=== PATIENT | male | born 1950 | race Caucasian/White ===

== ENCOUNTER → 2025-01-01 09:35 | Outpatient (REF) | payer MEDICARE, OTHER, SELFPAY ==
[2025-01-01 10:23] LABS: Hematocrit 43.9 % (39.0-52.0); Hemoglobin 15.3 g/dL (13.0-18.0); Mean Corp Hgb Conc. 34.9 g/dL (33.0-37.0); Mean Corpuscular Volume 89.6 fL (80.0-94.0); Nucleated Red Blood Cells % 0 % (-); Platelet Count 181 10^3/uL (130-400); Red Cell Dist. Width 12.1 % (11.5-14.5)
[2025-01-01 10:33] LABS: ALT (SGPT) 26 U/L (0-50); AST (SGOT) 21 U/L (17-59); Albumin 4.4 g/dl (3.5-5.0); Alkaline Phosphatase 159 U/L (38-126); Blood Urea Nitrogen 12 mg/dl (9-20); Calcium 9.9 mg/dl (8.4-10.2); Carbon Dioxide 26 mmol/L (22-30); Chloride 107 mmol/L (98-107); Glucose 100 mg/dl (70-99); Potassium 4.3 mmol/L (3.5-5.1); Sodium 137 mmol/L (135-145); Total Protein 7.3 g/dl (6.3-8.2); eGFR > 60.00
[2025-01-01 10:36] LABS: INR 1.19; PT 15.4 Sec (11.4-14.6)
[2025-01-01 11:16] LABS: Magnesium 2.0 mg/dl (1.6-2.3)
== END ==
LOC: SDSPAT 09:35
PROVIDERS: ATTENDING PHYSICIAN Internal Medicine Cardiovascular Disease; FAMILY PHYSICIAN Family Medicine Sports Medicine; OTHER PHYSICIAN Internal Medicine Cardiovascular Disease
DX: I48.0 Paroxysmal atrial fibrillation (principal)
CPT/HCPCS: 36415; 75572; 80053; 83735; 85025; 85610; 86850; 86900; 86901; 93005; Q9967

== ENCOUNTER 2025-01-27 05:54 | Day surgery (SDC) | payer MEDICARE, OTHER, SELFPAY ==
[2025-01-01 13:42] VITALS: BMI 34.2
[2025-01-27] VITALS (13 sets, daily range): BP systolic 118–151; BP diastolic 69–82; BMI 34.1
[2025-01-27] MEDS: NSS 500 IV (07:04)
[2025-01-27 08:29] LABS: ACT-LR - POC 285 Seconds (116-155)
--- NOTE | 2025-01-27 08:49 | ITS.CL.ABL ---
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
Ablation
Procedure Report:
ELECTROPHYSIOLOGY ABLATION STUDY
DATE:: January 27, 2025�����������������������������REFERRING: Dr. Kash Renteria
INDICATION: Paroxysmal supraventricular tachycardia in the form of atrial fibrillation.� As above
HISTORY: See H and P.��As above
ANTIARRHYTHMIC DRUG: As above
PRE-PROCEDURE ALEISHA: No intracardiac thrombus
PRESENTING RHYTHM: Sinus rhythm
'TIME-OUT':��called and confirmed.
SEDATION/ANESTHESIA:��provided via the anesthesia department using general anesthesia (LMA).
INTRAVENOUS/ARTERIAL ACCESS:
Right femoral venous - 8Fr
Left femoral venous - 8 Fr, 6 Fr
Ixpigx-vl-lnktj suture bilaterally
Ultrasound guidance for bilateral femoral vein access was utilized by me to obtain access with demonstration of normal anatomy
CHADS-VASC Score:
HAS-Bled Score
PROCEDURE:
1.��A decapolar CS catheter was placed within the CS for mapping and pacing.��This was also used as the reference catheter for the 3-D map.
2. The intracardiac ultrasound catheter was positioned in the RA to identify the FO for targeting of transseptal puncture, assist��in identification of the pulmonary vein ostia, monitoring pre and post ablation pulmonary vein flow velocities,
monitoring for 'bubble' formation during RF application as a sign of thermal injury,��and to monitor for pericardial effusion during mapping and ablation procedure.���Left atrial size, LV ejection fraction, and pulmonary vein flows were monitored
pre and post ablation procedure. The other valves were inspected and found to be free of significant regurgitation or stenosis.
3.��Half of the calculated heparin bolus was administered prior to the first transeptal puncture.��Transseptal puncture was performed to diagnose RA and LA pressure so that safety of LA mapping and ablation could be further assessed, and to access
the left atrium and pulmonary veins for mapping and ablation.��This entailed advancing an 8 Fr SL-1 sheath with dilator into the superior vena cava and withdrawing both (monitoring intracardiac ultrasound, fluoroscopy and tip pressure) with the tip
oriented toward the atrial septum.��The fossa ovalis was engaged (indicated by sudden displacement of the sheath tip as well as tenting of the fossa seen on intracardiac ultrasound).��Left atrial access required a pass with the Brockenbrough needle
extended.��Left atrial catheter position was confirmed by pressure monitoring (RA mean pressure 2 mm Hg and LA mean presure 8 mm Hg increased to 10 mmHg after hydration at end of procedure), LA saturation (99%),��as well as fluoroscopy.��The sheath
was advanced over the dilator and positioned in the left atrium.��This procedure was repeated for the Agilis sheath.��The remainder of the calculated heparin bolus was administered and heparin was
infused to maintain ACT at 300 -350 seconds throughout the case.
4.��RA pacing was performed via the proximal decapolar poles and LA pacing was performed via the distal decapolr poles.
5. A quadrapolar catheter was first positioned at the His position for His Bundle recording which was tagged via the 3-D Navex sytem, and then passed to the RVA for RV pacing and recording.
6. The Penta spline grid catheter placed in each of the LIPV, LSPV, RSPV and the RIPV.��
7.��Next, a 3-D map was created using Navex.���A 3-D reconstructed CT image was compared to the 3-D Navex map to assist in anatomic interpretation, mapping and ablation.��The CT image and the NavX image were fused.
8. A total of 52 lesions were given with all of and basket post to the pulmonary veins with entrance and exit block confirmed and then in flower pose roof posterior wall and floor of the left atrium bring about electrical silence of the left atrial
posterior wall roof and floor. EP study post procedure did not demonstrate any other pulmonary vein or nonpulmonary vein triggers for atrial fibrillation nor supraventricular arrhythmia.
9. Normal sinus node AV node function noted.
TOTAL FLOURO TIME: 12.1 minutes 123 mGy
TOTAL RF DURATION: 0 minutes
REVERSAL OF HEPARIN: 35 mg of protamine, slow IV administration
COMPLICATIONS:
None
Intracardiac US shows no pericardial effusion post ablation.
SUMMARY:��
Complex left atrial mapping and ablation.
Isolation of all 4 pulmonary veins as well as the posterior wall with the Penta spline catheter.
RECOMMENDATIONS:
1. Ambulate in 4 hours
2. Resume anticoagulation
3.� Patient will have a less than 23-hour stay but lives alone and had to drive himself
4.��Continue current medicines
Copy to: Dr. Kash Renteria
[2025-01-27] MEDS: TYLENOL 650 MG PO (12:30)
--- NOTE | 2025-01-27 14:56 | PTCARENOTE ---
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 pt able to walk for stretcher to bed. pt states he has chronic back pain and moved slowly. room air breath sounds diminished. nsr seen on monitor. pt roomed in.
--- NOTE | 2025-01-27 15:11 | CM ---
Spoke with patient in room. Previously independent at baseline, lives alone in 2 story home with 3 steps to enter. Uses a CPAP at HS, no O2. Denies additional DME or DC needs. Plan to DC home when medically stable.
--- NOTE | 2025-01-27 15:33 | PTCARENOTE ---
Rec'd Pt, A,A+OX3, reports good relief from back pain after taking Tylenol earlier. Bilat femoral dsgs D+I, + pedal pulses. Resting comfortably at present.
[2025-01-27] MEDS: FLOMAX 0.4 MG PO (16:47)
[2025-01-27] MEDS: ELIQUIS 5 MG PO (16:47)
[2025-01-27] MEDS: COZAAR 100 MG PO (16:48)
--- NOTE | 2025-01-27 21:00 | PTCARENOTE ---
Pt AAOx3, reports 'mild' 2/10 pain to lower back which pt states is chronic, politely declines offered Tylenol. NSR on the monitor. B/L groin dressing C/D/I, neurovascularly intact bilaterally. Pt offers no complaints at this time. Eagerly awaiting
d/c in the AM.
[2025-01-27] MEDS: NSS IV (21:59)
[2025-01-28 04:15] VITALS: BP 135/71
[2025-01-28 04:26] VITALS: BMI 33.2
[2025-01-28 04:48] LABS: Hematocrit 41.5 % (39.0-52.0); Hemoglobin 13.9 g/dL (13.0-18.0); Mean Corp Hgb Conc. 33.5 g/dL (33.0-37.0); Mean Corpuscular Volume 93.0 fL (80.0-94.0); Platelet Count 174 10^3/uL (130-400); Red Cell Dist. Width 12.6 % (11.5-14.5)
[2025-01-28 05:09] LABS: Blood Urea Nitrogen 16 mg/dl (9-20); Calcium 9.2 mg/dl (8.4-10.2); Carbon Dioxide 25 mmol/L (22-30); Chloride 107 mmol/L (98-107); Estimated Creatinine Clearance 119 ml/min; Glucose 113 mg/dl (70-99); Potassium 4.1 mmol/L (3.5-5.1); Sodium 136 mmol/L (135-145); eGFR > 60.00
[2025-01-28 07:35] VITALS: BP 128/74
[2025-01-28] MEDS: NSS IV (09:22)
[2025-01-28] MEDS: ELIQUIS 5 MG PO (09:22)
--- NOTE | 2025-01-28 09:25 | W.PN.CARDCBS ---
Today's Communication / Plan
-
post PVI, stable for d/c home today
Impression / Plan
-
PCP: Martin Quinn DO
CDY: Kash Renteria MD
Impression:
Symptomatic paroxysmal Atrial fibrillation
post PVI 01/27/25
HTN
MK/CPAP
BPH
NSVT
Tachy-gerardo syndrome
Anxiety
Peripheral neuropathy
former tobacco/ETOH abuse
Plan:
post ablation feels good
groin stable
tele SR
OAC Eliquis 5mg bid
HTN continue olmesartan
BPH continue tamsulosin and tolterodine
Activity restrictions reviewed, RTW note provided for lifting restrictions (works at [employer])
f/u Dr. Renteria in 1 mo
home 24 hours after last anesthesia yesterday as pt driving himself home
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
Subjective
Date of Service: January 28, 2025
denies cp, sob
Objective
Labs:
01/28/25 04:23
01/28/25 04:23
Labs
Hgb 13.9 g/dL (13.0-18.0) 01/28/25 04:23
Hct 41.5 % (39.0-52.0) 01/28/25 04:23
Plt Count 174 10^3/uL (130-400) 01/28/25 04:23
Sodium 136 mmol/L (135-145) 01/28/25 04:23
Potassium 4.1 mmol/L (3.5-5.1) 01/28/25 04:23
BUN 16 mg/dl (9-20) 01/28/25 04:23
Creatinine 0.7 mg/dL (0.7-1.3) 01/28/25 04:23
Glucose 113 mg/dl (70-99) H 01/28/25 04:23
Vital Signs and I&O:
Vital Signs
Temp Pulse Resp BP Pulse Ox
98.1 F 70 18 128/74 98
01/28/25 07:31 01/28/25 09:00 01/28/25 07:31 01/28/25 07:35 01/28/25 07:31
Vital Signs
Temp Pulse Resp BP Pulse Ox
98.1 F 70 18 128/74 98
01/28/25 07:31 01/28/25 09:00 01/28/25 07:31 01/28/25 07:35 01/28/25 07:31
Intake & Output
01/26/25 01/27/25 01/28/25 01/29/25
06:59 06:59 06:59 06:59
Intake Total 1090 / 1090
Output Total 625 / 625
Balance 465 / 465
Physical Exam
Physical Exam
NAD, AOX3
S1, S2, RRR
CTAB, non labored, no wheeze
SNTND bsx4
b/l groins c/d/i no HT, soft
--- NOTE | 2025-01-28 10:44 | W.DS.TRANS ---
DC Summary - Agent
-
Discharge Instructions:
Discharge Diagnosis/Procedures AFib, s/p ablation
Diet Low Sodium
Driving Restrictions No driving for 24 hours
Instructions:
Stand-Alone Forms: DC Instructions- Cath/EP Lab
Return to Work
Changes to Home Medications: No
Discharge Medications:
DC Medications w/original date entered in [employer]
alprazolam 0.5 mg tablet (Xanax) 0.5 mg PO PRN PRN anxiety 01/01/25
apixaban 5 mg tablet (Eliquis) 5 mg PO BID Blood Clot Prevention/Tx 01/01/25
olmesartan 40 mg tablet 40 mg PO QPM Blood Pressure 01/01/25
tamsulosin 0.4 mg capsule 0.4 mg PO QPM Urinary Issue 01/01/25
tolterodine 2 mg capsule,extended release 24 hr 2 mg PO DAILY Urinary Issue 01/01/25
acetaminophen 325 mg tablet 650 mg PO Q6H PRN back spasms 01/27/25
Home Medication Changes
Pending Results: No
[2025-01-28 11:12] VITALS: BP 116/66
== END 2025-01-28 13:18 | disposition home or self-care (01) ==
LOC: CATH 05:54
PROVIDERS: Nurse Practitioner; ATTENDING PHYSICIAN Internal Medicine Cardiovascular Disease; FAMILY PHYSICIAN Family Medicine Sports Medicine; OTHER PHYSICIAN Internal Medicine Cardiovascular Disease
DX: I48.0 Paroxysmal atrial fibrillation (principal); I47.29 Other ventricular tachycardia; I49.5 Sick sinus syndrome; I10 Essential (primary) hypertension; G47.33 Obstructive sleep apnea (adult) (pediatric); F41.9 Anxiety disorder, unspecified; N40.0 Benign prostatic hyperplasia without lower urinary tract symptoms; Z87.891 Personal history of nicotine dependence; E66.9 Obesity, unspecified; Z68.33 Body mass index [BMI] 33.0-33.9, adult; Z79.01 Long term (current) use of anticoagulants; Z79.899 Other long term (current) drug therapy; G62.1 Alcoholic polyneuropathy; F10.21 Alcohol dependence, in remission; I47.20 Ventricular tachycardia, unspecified; I47.10 Supraventricular tachycardia, unspecified; I44.0 Atrioventricular block, first degree
CPT/HCPCS: C1759; C1732; C1894; C1730; C1769; C1892; 80048; 85027; 85347; 86900; 86901; 93005; 93656; 93657; C1733; C1766